=== PATIENT | female | born 1955 | race Caucasian/White ===

== ENCOUNTER 2017-07-18 11:15 | Emergency (ER) | payer OTHER ==
[~2017-07-18] VITALS: Ht 172.7 cm; Wt 70.4 kg
[2017-07-18] MEDS ORDERED: SODIUM CHLORIDE 0.9% 1,000ML IVBOLUS ONE (12:00)
[2017-07-18] MEDS ORDERED: SODIUM CHLORIDE FLUSH 10ML SYR IVF ONE (12:00)
[2017-07-18] MEDS ORDERED: PRED20TA PO (12:02)
[2017-07-18] MEDS ORDERED: CLAR500T PO (12:03)
[2017-07-18] MEDS ORDERED: GUAI-106 PO (12:29)
[2017-07-18] MEDS ORDERED: NAPR-856 PO (12:32)
[2017-07-18 12:39] LABS: RAPID INFLUENZA A Negative (Negative); RAPID INFLUENZA B Negative (Negative)
[2017-07-18 12:41] LABS: BASOPHILS # (AUTO) 0.04 x10^3/uL (0-0.1); BASOPHILS % (AUTO) 0 % (0-1); EOSINOPHILS # (AUTO) 0.01 x10^3/uL (0-0.4); EOSINOPHILS % (AUTO) 0 % (1-7); LYMPHOCYTES # (AUTO) 2.05 x10^3/uL (1-3.4); LYMPHOCYTES % (AUTO) 16 % (22-44); MD NO; MEAN CORPUSCULAR HEMOGLOBIN 30.1 pg (27.0-34.8); MEAN CORPUSCULAR HGB CONC 33.6 g/dL (32.4-35.8); MEAN CORPUSCULAR VOLUME 89.6 fL (80-100); MEAN PLATELET VOLUME 10.1 fL (7.4-10.4); MONOCYTES # (AUTO) 0.34 x10^3/uL (0.2-0.8); MONOCYTES % (AUTO) 3 % (2-9); NEUTROPHILS # (AUTO) 10.58 x10^3/uL (1.8-6.8); NEUTROPHILS % (AUTO) 81 % (42-75); PLATELET COUNT 205 x10^3/uL (130-400); RED BLOOD COUNT 5.07 x10^6/uL (3.82-5.3); RED CELL DISTRIBUTION WIDTH 14.9 % (9.6-15.2)
[2017-07-18 12:51] LABS: ALANINE AMINOTRANSFERASE 22 U/L (12-78); ALBUMIN 3.5 g/dL (3.4-5.0); ANION GAP 7 mmol/L (5-15); CALCIUM 8.3 mg/dL (8.5-10.1); CHLORIDE 107 mmol/L (98-107); CREATININE 0.67 mg/dL (0.55-1.02)
[2017-07-18 12:53] LABS: ALKALINE PHOSPHATASE 88 U/L (45-117); BILIRUBIN,TOTAL 0.4 mg/dL (0.2-1.0); TOTAL PROTEIN 7.1 g/dL (6.4-8.2)
[2017-07-18] MEDS ORDERED: ALBU90AE PO (12:53)
[2017-07-18 14:20] VITALS: BP 134/64
== END 2017-07-18 14:22 | disposition home or self-care (01) ==
LOC: ED 14:20
DX: B34.9 Viral infection, unspecified (principal); J44.9 Chronic obstructive pulmonary disease, unspecified; Z88.5 Allergy status to narcotic agent
CPT/HCPCS: 36415; 71010; 80053; 83605; 85025; 87040; 87400; 93005

== ENCOUNTER → 2017-08-12 | Outpatient (CLI) | payer OTHER ==
[~2017-08-12] MED LIST: ALBU90AE PO; CLAR500T PO; GUAI-106 PO; NAPR-856 PO; PRED20TA PO
== END | disposition home or self-care (01) ==
LOC: CFH 11:49
PROVIDERS: ATTEND Family Medicine
DX: Z13.820 Encounter for screening for osteoporosis (principal); M81.0 Age-related osteoporosis without current pathological fracture; N64.4 Mastodynia; R05 Cough; M41.84 Other forms of scoliosis, thoracic region
CPT/HCPCS: 71046; 76642; 77080; 77066

== ENCOUNTER → 2017-08-26 | Outpatient (CLI) | payer OTHER | END | disposition home or self-care (01) | LOC: CFH 09:55 | PROVIDERS: ATTEND Family Medicine | DX: I67.82 Cerebral ischemia (principal); G31.9 Degenerative disease of nervous system, unspecified; R90.82 White matter disease, unspecified | CPT/HCPCS: 70450 ==

== ENCOUNTER → 2017-09-22 | Outpatient (CLI) | payer OTHER | END | disposition home or self-care (01) | LOC: CVU 06:59 | PROVIDERS: ATTEND Internal Medicine Cardiovascular Disease | DX: R07.89 Other chest pain (principal); I10 Essential (primary) hypertension; R06.02 Shortness of breath | CPT/HCPCS: 78452; 93017; 93306; A9502 ==

== ENCOUNTER → 2018-10-06 | Outpatient (CLI) | payer OTHER | END | disposition home or self-care (01) | LOC: CFH 14:09 | PROVIDERS: ATTEND Nurse Practitioner | DX: J43.2 Centrilobular emphysema (principal); M41.85 Other forms of scoliosis, thoracolumbar region; Z87.891 Personal history of nicotine dependence | CPT/HCPCS: 71250 ==

== ENCOUNTER → 2019-06-26 | Outpatient (CLI) | payer OTHER, MEDICARE ==
[~2019-06-26] MED LIST changes: +CLAR-36 PO; -CLAR500T PO
== END | disposition home or self-care (01) ==
LOC: EDSTATUS 01-16 10:15 → CFH 08:06 → EDSTATUS 08:30
PROVIDERS: ATTEND Family Medicine
DX: Z12.31 Encounter for screening mammogram for malignant neoplasm of breast (principal); M81.0 Age-related osteoporosis without current pathological fracture; N95.9 Unspecified menopausal and perimenopausal disorder; F17.200 Nicotine dependence, unspecified, uncomplicated
CPT/HCPCS: 77063; 77067; 77080

== ENCOUNTER → 2020-05-16 | Outpatient (CLI) | payer OTHER, MEDICARE ==
[~2020-05-16] MED LIST changes: +CLAR-14 PO; -CLAR-36 PO
== END | disposition home or self-care (01) ==
LOC: CFH 08:07
PROVIDERS: ATTEND Nurse Practitioner
DX: Z12.2 Encounter for screening for malignant neoplasm of respiratory organs (principal); F17.210 Nicotine dependence, cigarettes, uncomplicated; G31.9 Degenerative disease of nervous system, unspecified; J43.2 Centrilobular emphysema; J84.10 Pulmonary fibrosis, unspecified; I25.10 Atherosclerotic heart disease of native coronary artery without angina pectoris; R91.1 Solitary pulmonary nodule; R00.2 Palpitations
CPT/HCPCS: 70450; G0297

== ENCOUNTER → 2020-06-04 | Outpatient (CLI) | payer OTHER, MEDICARE | END | disposition home or self-care (01) | LOC: CVU 05-16 08:25 | PROVIDERS: ATTEND Internal Medicine Cardiovascular Disease | DX: I34.0 Nonrheumatic mitral (valve) insufficiency (principal); I65.23 Occlusion and stenosis of bilateral carotid arteries; I10 Essential (primary) hypertension; Z87.891 Personal history of nicotine dependence | CPT/HCPCS: 93306; 93356; 93880 ==

== ENCOUNTER → 2020-06-05 | Outpatient (CLI) | payer OTHER, MEDICARE ==
[~2020-06-05] MED LIST changes: +REGADENOSON 0.4 MG/5 ML SYRINGE ONE
== END | disposition home or self-care (01) ==
LOC: CFH 07:20
PROVIDERS: ATTEND Internal Medicine Cardiovascular Disease
DX: R07.89 Other chest pain (principal); R00.2 Palpitations; G45.9 Transient cerebral ischemic attack, unspecified
CPT/HCPCS: 78452; 93017; A9502; J2785

== ENCOUNTER 2021-03-18 09:12 | Emergency (ER) | payer OTHER, MEDICARE ==
[~2021-03-18] VITALS: Ht 167.6 cm; Wt 78.0 kg
[~2021-03-18 09:12] MED LIST changes: -REGADENOSON 0.4 MG/5 ML SYRINGE ONE
[2021-03-18 10:00] VITALS: BP 135/78
--- NOTE | 2021-03-18 10:05 | NUR ---
assumed care of pt. pt here c/o pain to L rib area after a fall 2 days ago. pt reports that she slipped walking down 3 steps coming out of her 5th wheel trailer. no head injury. pt reports that she has been seen at [facility] yesterday for foot injury and was Dx with a fracture to her L foot. pt is currently non-complaint with boot that she was given to wear. pt also curretnly ambulating with walker. education given regarding the importance of complaince with ortho equipment. pt is somewhat hostile in her responses and mildly argumentative pt positioning for comfort and ice pack applied to L rib area. no brusing noted. +tender to palpation SO at bedside
--- NOTE | 2021-03-18 10:25 | NUR ---
pt in RAD
--- NOTE | 2021-03-18 10:47 | NUR ---
pt declines [facility]. states that she "does not like the way those medicines make her feel" pt updated on POC
[2021-03-18] MEDS ORDERED: HYDROcodone/APAP 5/325 TABLET PO ONE (11:00)
--- NOTE | 2021-03-18 11:11 | NUR ---
chart up for MD recheck
--- NOTE | 2021-03-18 11:35 | NUR ---
no changes. awaiting MD recheck
--- NOTE | 2021-03-18 11:50 | NUR ---
Dr. Cevallos at bedside for recheck
--- NOTE | 2021-03-18 11:55 | NUR ---
attempted to enter room to D/C pt. pt has left department
== END 2021-03-18 12:04 | disposition left against medical advice (07) ==
LOC: ED 09:42
DX: S20.212A Contusion of left front wall of thorax, initial encounter (principal); W19.XXXA Unspecified fall, initial encounter; Y93.89 Activity, other specified; Y92.009 Unspecified place in unspecified non-institutional (private) residence as the place of occurrence of the external cause; Y99.8 Other external cause status
CPT/HCPCS: 99283